=== PATIENT | female | born 1990 | race African-American/Black ===

== ENCOUNTER 2019-07-11 15:35 | Outpatient (CLI) | payer OTHER ==
--- NOTE | 2019-07-11 14:43 | SLEEP CARE CONSULTATION ---
Information from patient questionnaire entered by Vidya Bray. I have reviewed and concur with the information entered by Vidya Bray. This document represents the service I personally performed and the decisions made by me, Hiram Brandon MD, [facility]. History of Present Illness Service Date and Time: 07/11/2019 1420 Reason for Visit: New patient Chief Complaint: reports: Insomnia, Unrefreshed sleep, Fatigue, Frequent awakenings at night Duration of Symptoms: 2 plus years Usual bedtime: 8-10 pm Time it takes to fall asleep: 45 minutes plus Snores at night: No Observed to quit breathing while asleep: No Sleeps alone due to snoring: No Number of times waking at night: 2-3 Reasons for waking at night: reports: Bathroom, Other (dry mouth and for no reason) Toss, Turn, or Twitch while sleeping: Yes Recalls having dreams: Yes Usually gets out of bed at: 5-6 am Feels refreshed in the morning: No Morning headache: No Sleepy or fatigued during the day: Yes (sometimes) Ever fallen asleep while driving: No Takes day naps: No (sometimes) Dreams during day naps: No Prior sleep studies: No Additional HPI information: I had the pleasure of seeing Ms. Davis today regarding the possibility of her having a sleep disorder. As you know, she is a 29 year old lady who complains of insomnia, unrefreshed sleep, frequent awakenings, and persistent fatigue. The patient tells me that she normally goes to bed around 11 pm, and it takes her approximately 45 minutes to fall asleep. She has a prescription for hydroxyzine. She not been told that she snores loudly and irregularly at night. She has never been observed to stop breathing in her sleep. However, she sleeps alone. She can recall waking up on the average of 2 - 3 times during the night. Most of the time she wakes up because of having to use the bathroom. She has never awakened because of her own snoring, choking, or having to gasp for air. There is not a lot of tossing and turning in her sleep. No somniloquy (sleep talking) or somnambulism (sleep walking). Generally there is no recollection of dreams. In the morning she usually gets up out of the bed around 9 a.m. not feeling refreshed nor rested. She usually does not have a morning headache. During the day she complains of feeling sleepy and fatigued. Her score on [place] Sleepiness Scale is 12 out of 24. She has never fallen asleep while driving nor has had any accident due to sleepiness. She usually does not take naps during the day. She reports having impaired concentration during the day. - Parasomnia Symptoms Ever been unable to move upon waking from sleep: Yes (twice, related to dreams) Ever felt weak in the knees when startled or emotional: No Bothered by creepy, crawly, restless sensations in legs: No Problems with memory or concentration: Yes Subjective Initial [place] Sleepiness Scale score: 12 Past Medical History Past Medical History: reports: Hypertension, Anxiety, Depression Social History The patient's occupation is a Active . Patient is Single and lives in [place]. Have you smoked in the past 12 months: No Alcohol use: Yes Alcohol amount and frequency: 2-3 drinks a month Caffeine use: No Family History Family history of sleep disordered breathing: No Allergies and Home Medications Drug allergies reviewed: Yes Home medication list reviewed: Yes Review of Systems Weight gain over past 5 years: 30 Weight loss over past 5 years: 10 Cardiovascular: reports: high blood pressure Respiratory: denies: shortness of breath, wheeze, sputum production, chronic cough, other Gastrointestinal: denies: heartburn, difficulty swallowing, nausea, vomitting, diarrhea, abdominal pain, other Neurological: reports: headaches Psychiatric: reports: anxiety, depression Ear/Nose/Throat: reports: nasal congestion, sinus problems, wisdom teeth removed Musculoskeletal: reports: neck pain, back pain Physical Exam Height: 5 ft 8 in Impression and Plan IMPRESSION: 1. Possible Obstructive Sleep Apnea-Hypopnea Syndrome, as suggested by history of frequent awakenings during the night, unrefreshed sleep, excessive daytime sleepiness, and history of hypertension. Narrow oropharynx and obesity are common predisposing factors for obstructive sleep apnea-hypopnea syndrome. Pathophysiology of sleep-disordered breathing was discussed. I recommend proceeding to polysomnography to confirm the diagnosis and to assess severity. I informed the patient of what the sleep studies involve and after some discussion, she agreed to proceed. 2. Insomnia due to excessive time spent in bed. Presently, she goes to bed at 11 pm and leaves the bed at 9 am in the morning. This means she is spending 10 hours in bed. When she used to work, her wake up differs between weekdays and weekends by 3 4 hours. This is known as social jet lag and will cause sleep onset insomnia on weekdays. The solution is to keep the same wakeup time every day and go to bed no earlier than 8 hours before the wakeup time, e.g. if she wakes up at 9 am, she should not go to bed until 1 am. Medication is not the solution. Plan: 1. Schedule polysomnography. 2. Avoid long distance driving or when feeling sleepy. 3. Avoid alcohol, sedative and muscle relaxant around bedtime. 4. Attempt to lose weight. 5. Return in 1 to 2 weeks after the study to discuss results and initiate thera py Video Type: Truzip Patient Location: Home Location of Provider: Home Patient agrees and consents to this telehealth visit type: Yes Patient agrees to have their insurance billed: Yes Time Spent with Patient (minutes): 15
== END 2019-07-11 15:36 | disposition home or self-care (01) ==
LOC: SC 15:35
PROVIDERS: ATTEND Internal Medicine Pulmonary Disease
DX: G47.8 Other sleep disorders (principal); G47.00 Insomnia, unspecified; G47.10 Hypersomnia, unspecified; R53.83 Other fatigue; E66.3 Overweight; I10 Essential (primary) hypertension